=== PATIENT | female | born 1975 | race Caucasian/White ===

== ENCOUNTER → 2023-09-05 14:48 | Outpatient (BNVA) | payer SELFPAY | PROVIDERS: PCP Nurse Practitioner Adult Health ==

== ENCOUNTER 2024-05-28 16:38 | Emergency (ER) | payer OTHER, SELFPAY ==
[2024-05-28] VITALS (7 sets, daily range): BP systolic 157–216; BP diastolic 75–124; PULSE 74–105; RESP 12–18; TEMP 36.8–37.2; O2SAT 96–100; BMI 28.9
--- NOTE | ~2024-05-28 | CT_ITS ---
CLINICAL HISTORY: chest pain elevated bp CT angiography of the chest, abdomen and pelvis with IV contrast. 3D/MIP post processing reconstructions were performed. COMPARISON: None FINDINGS: No evidence of aortic dissection. No thoracic or abdominal aortic aneurysm. Three arch branch vessels. Visualized great vessels of the neck are patent. Celiac trunk, SMA, renal arteries ROSITA are widely patent. Common iliac, external iliac and internal iliac arteries are widely patent bilaterally. Normal thyroid gland. No supraclavicular or axillary lymphadenopathy. Soft tissue density nodular opacity within the right breast measuring 1.6 cm. Ascending aorta and main pulmonary artery are normal in caliber. No pericardial effusion. Normal esophagus. No mediastinal lymphadenopathy. No pleural effusion. No consolidation. Trachea and central airways are clear. No significant bronchial wall thickening. No bronchiectasis. Hepatic steatosis. No focal hepatic lesion. Normal gallbladder. Normal spleen. Normal pancreas. Normal adrenal glands. Symmetric renal enhancement. No hydronephrosis. Normal appendix. Mild colonic stool burden. No bowel obstruction. Circumferential thickening of the rectal mucosa. No mesenteric or retroperitoneal lymphadenopathy. Normal appearance of the urinary bladder. Left adnexal cystic lesion measuring up to 3.3 cm. No acute fracture or suspicious bone lesion. 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 No spondylolisthesis. IMPRESSION: 1. No evidence of aortic dissection or aneurysm. 2. Dominant left ovarian cyst/follicle measuring up to 3.3 cm. 3. Circumferential thickening of the mucosa of the rectum can be associated with proctitis. 4. Nodular density within the right breast measuring up to 1.6 cm. Recommend correlation with recent mammography if not already performed. 5. Hepatic steatosis. This document has been electronically signed by: Alejo Mendoza MD on 05/28/2024 20:23:37
--- NOTE | ~2024-05-28 | XR_ITS ---
CLINICAL HISTORY: pain Two views of the chest. COMPARISON: None FINDINGS: Normal heart and mediastinal contours. No consolidation. Blunting of the bilateral costophrenic angles. No pneumothorax. No fracture identified. IMPRESSION: 1. No consolidation. 2. Question small bilateral pleural effusions. This document has been electronically signed by: Alejo Mendoza MD on 05/28/2024 17:34:48
--- NOTE | 2024-05-28 16:41 | ECG_ITS ---
Test Reason : CHEST PAIN Blood Pressure : */* mmHG Vent. Rate : 104 BPM Atrial Rate : 104 BPM P-R Int : 142 ms QRS Dur : 96 ms QT Int : 340 ms P-R-T Axes : 71 24 51 degrees QTcB Int : 447 ms Sinus tachycardia Possible Left atrial enlargement Borderline ECG When compared with ECG of 16-Feb-2017 02:24, Vent. rate has increased by 37 bpm Referred By: Generic ED Physician Electronically Signed By: EDUARDO CACERES
--- NOTE | 2024-05-28 16:44 | ED_ITS ---
HPI - General Adult General Chief complaint: Chest Pain Stated complaint: Chest pain/HBP Time Seen by Provider: 05/28/24 18:10 Related Data Previous Rx's ?Medication ?Instructions ?Recorded amlodipine 5 mg tablet 5 mg PO DAILY #14 tabs 05/28/24 Allergies Allergy/AdvReac Type Severity Reaction Status Date / Time tuberculin, purified protein AdvReac Intermediate SWELLING Verified 05/28/24 16:47 deriva OF [TB TEST] INJECTED [facility] Social History Social History Smoked in Last 30 Days: Yes Use of substances other than those prescribed or required for medical reasons: No Advance Directives: No Advance Directives Information Provided: No Patient : No Physical Exam ED Vital Signs: Vital Signs - 24 hr 05/28/24 16:45 05/28/24 18:35 05/28/24 19:30 Temperature 98.8 F 98.2 F Pulse Rate 105 H 94 94 Respiratory Rate 18 12 Blood Pressure 216/124 H 210/107 H 210/107 H Pulse Oximetry 100 99 Oxygen Delivery Method Room Air Room Air 05/28/24 20:11 05/28/24 20:23 Temperature 98.9 F Pulse Rate 78 74 Respiratory Rate 12 18 Blood Pressure 181/101 H 157/75 H Pulse Oximetry 96 96 Oxygen Delivery Method Room Air Room Air BMI result Body Mass Index 28.9 Course Course Course Narrative: RME, this is a rapid medical exam performed by Kirt Armas please refer to primary provider for complete H&P- 48 year old female presents for evaluation of chest pain. She was hypertensive to 216 /124. Plan for labs, EKG, chest x-ray. Medications Administered Discontinued Medications Generic Name Dose Route Start Last Admin Trade Name Freq PRN Reason Stop Dose Admin Magnesium Sulfate 2 gm in 50 mls @ 150 mls/hr 05/28/24 18:10 05/28/24 19:31 Magnesium Sulfate/H2o IV 05/28/24 18:29 Infused ONCE ONE Infusion Iohexol 100 ml 05/28/24 19:26 05/28/24 19:26 Iohexol 350 Mg/Ml 100 Ml Infus..Btl IV 05/28/24 19:27 85 ml ONCE ONE Administration Labetalol HCl 10 mg 05/28/24 19:13 05/28/24 19:30 Labetalol Hcl 100 Mg/20 Ml Vial IVPUSH 05/28/24 19:14 10 mg ONCE ONE Administration Medical Decision Making Lab Data 05/28/24 16:54 05/28/24 16:54 Labs: Lab Results 05/28/24 05/28/24 Range/Units 16:54 20:02 WBC 18.0 H (4.8-10.8) X10*3/uL RBC 4.47 (4.20-5.50) X10*6/uL Hgb 14.8 (12.0-16.0) g/dl Hct 41.5 (37.0-47.0) % MCV 92.8 (80.0-98.0) fL MCH 33.1 H (27.0-33.0) pg MCHC 35.7 H (31.0-35.0) g/dl RDW 13.5 (11.0-16.0) % Plt Count 364 (160-400) X10*3/uL MPV 9.1 L (9.4-12.3) fL Immature Gran % (Auto) 0.6 H (0.0-0.4) % Neut % (Auto) 85.5 H (45-73) % Lymph % (Auto) 9.4 L (20-40) % Coleman % (Auto) 3.9 (2-11) % Eos % (Auto) 0.1 (0-4) % Baso % (Auto) 0.5 (0-2) % Lymph # (Auto) 1.7 (1.2-4.9) X10*3/uL Coleman # (Auto) 0.7 (0.1-1.2) X10*3/uL Eos # (Auto) 0.0 (0.0-0.4) X10*3/uL Baso # (Auto) 0.1 (0.0-0.2) X10*3/uL Abs Immat Gran (auto) 0.10 H (0.00-0.03) X10*3/uL Absolute Neuts (auto) 15.4 H (2.0-8.3) x10*3/uL Absolute Nucleated RBC 0.000 (0.0-0.012) X10*3/uL Nucleated RBC % (auto) 0.0 (0.0-0.2) /100WBC Sodium 143 (135-145) mmol/L Potassium 3.2 L (3.3-5.1) mmol/L Chloride 106 (96-108) mmol/L Carbon Dioxide 24 (22-29) mmol/L Anion Gap 16 (12-20) BUN 8 L (9-16) mg/dL Creatinine 0.77 (0.5-1.4) mg/dL Estim Creat Clear Calc 90.3 Estimated GFR > 60 Random Glucose 101 (60-115) mg/dL Calcium 9.9 (8.4-10.2) mg/dL Magnesium 1.4 L* 2.0 (1.6-2.6) mg/dL Total Bilirubin 0.6 (0.0-1.0) mg/dL AST 59 H (5-31) U/L ALT 55 H (0-31) U/L Alkaline Phosphatase 63 (39-117) U/L Troponin I High Sens < 2.7 < 2.7 (<3.5-17.0) ng/L Total Protein 8.0 (6.5-8.0) g/dL Albumin 4.3 (3.5-5.0) g/dL Lipase 22 (8-78) U/L Ethyl Alcohol < 10 mg/dL Influenza Type A (PCR) NEGATIVE (Negative) Influenza Type B (PCR) NEGATIVE (Negative) RSV RNA Qual (PCR) NEGATIVE (Negative) SARS-CoV-2 RNA (RT-PCR) NEGATIVE (Negative) Discharge Plan Discharge Clinical Impression: Chest pain, Hypertensive urgency Patient Disposition: Home, Self-Care Instructions: Chest Pain (DC), Hypertensive Crisis (ED) Additional Instructions: An ovarian cyst was also found on your CT scan. In addition a nodular density was found in your breasts. Both of this needs to be followed up. 1. No evidence of aortic dissection or aneurysm. 2. Dominant left ovarian cyst/follicle measuring up to 3.3 cm. 3. Circumferential thickening of the mucosa of the rectum can be associated with proctitis. 4. Nodular density within the right breast measuring up to 1.6 cm. Recommend correlation with recent mammography if not already performed. 5. Hepatic steatosis. Prescriptions: New amlodipine 5 mg tablet 5 mg PO DAILY Qty: 14 0RF Referrals: Luiz Brock MD [Physician] - 05/31/24 Physician,Unknown J [Primary Care Provider] - (Blood pressure recheck with your primary physician tomorrow) Print Language: Kiswahili
[2024-05-28 16:59] LABS: MANUAL DIFF FLAG NO
[2024-05-28 17:00] LABS: Basophils Absolute Auto 0.1 X10*3/uL (0.0-0.2); Basophils Percent Auto 0.5 % (0-2); Eosinophils Percent Auto 0.1 % (0-4); Hematocrit 41.5 % (37.0-47.0); Hemoglobin 14.8 g/dl (12.0-16.0); Imm Gran Pct Auto 0.6 % (0.0-0.4); Lymphocytes Absolute Auto 1.7 X10*3/uL (1.2-4.9); Lymphocytes Percent Auto 9.4 % (20-40); Mean Corpuscular HGB Conc 35.7 g/dl (31.0-35.0); Mean Corpuscular Hemoglobin 33.1 pg (27.0-33.0); Mean Corpuscular Volume 92.8 fL (80.0-98.0); Mean Platelet Volume 9.1 fL (9.4-12.3); Monocytes Absolute Auto 0.7 X10*3/uL (0.1-1.2); Monocytes Percent Auto 3.9 % (2-11); Neutrophils Absolute Auto 15.4 x10*3/uL (2.0-8.3); Neutrophils Percent Auto 85.5 % (45-73); Platelet Count 364 X10*3/uL (160-400); Red Blood Count 4.47 X10*6/uL (4.20-5.50); Red Cell Distribution Width 13.5 % (11.0-16.0)
[2024-05-28 17:22] LABS: Alanine Aminotransferase 55 U/L (0-31); Albumin Level 4.3 g/dL (3.5-5.0); Alkaline Phosphatase 63 U/L (39-117); Anion Gap 16 (12-20); Aspartate Amino Transferase 59 U/L (5-31); Bilirubin Total 0.6 mg/dL (0.0-1.0); Blood Urea Nitrogen 8 mg/dL (9-16); Calcium 9.9 mg/dL (8.4-10.2); Carbon Dioxide 24 mmol/L (22-29); Chloride 106 mmol/L (96-108); Creatinine Clr Calc Pharmacy 90.3; Estimated Glomerular Filt Rate > 60; Glucose Random 101 mg/dL (60-115); Lipase 22 U/L (8-78); Magnesium 1.4 mg/dL (1.6-2.6); Potassium 3.2 mmol/L (3.3-5.1); Sodium 143 mmol/L (135-145)
[2024-05-28 17:39] LABS: Troponin-I High Sensitivity < 2.7 ng/L (<3.5-17.0)
[2024-05-28 17:41] LABS: Influenza A PCR NEGATIVE (Negative); Influenza B PCR NEGATIVE (Negative); Resp Syncy Virus RNA Qual PCR NEGATIVE (Negative); SARS COV2 PCR INHOUSE NEGATIVE (Negative)
[2024-05-28] MEDS: Magnesium Sulfate/H2O 2 GM/50 ML PIGGYBACK IV (18:36)
[2024-05-28] MEDS: iohexoL 350 MG/ML 100 ML INFUS..BTL IV (19:26)
--- OUTSIDE RECORDS SUMMARY | 2024-05-28 19:29 | XMS_ITS | Patient Health Record ---
Author Organization [employer] [facility] Address [address] [place] [address] Care Team Providers Care Fork Lift Technician Name Role Phone Morales BETANCOURT, Myrna Primary Care Provider Moody vogt QUITA GEORGES Unavailable [phone] Reason For Referral No Information Medications Medication SIG (Take, Route, Frequency, Duration) Notes Start Date End Date Status ProAir HFA 90MCG 2 Inhalation four ti mes daily for -3 Narciso-MJ 10/03/2011 Active Nexplanon 68 MG as directed Subcutaneous Inserted 01/07/20 01/09/2017 Active Social History Tobacco Use: Social History Observation Description Date Details (start date - stop date) Current Smoker NA - NA Tobacco Use/Smoking Question Answer Notes Are you a current smoker How often do you smoke cigarettes? every day How many cigarettes a day do you smoke? 5 or les s Alcohol Screen (Audit-C) Question Answer Notes Did you have a drink contain ing alcohol in the past year? Yes How often did you have a dri nk containing alcohol in the past year? 2 to 4 times a month (2 points) How many drinks did you have on a typical day when you were drinking in the past year? 1 or 2 drinks (0 point) Points 2 Interpretation Negative Sexual History Question Answer Notes Had sex in the past 12 months (vaginal, oral, or anal)? Yes with Men only Prevention strategies discussed: Other Section Notes: Marital status: Children: none Lives with: significant other Pets: NONE Occupation: employed full-time Nutrition: poor diet Exercise: regular cardio Sexual activity: monogamous relationship. Heterosexual Satisfied with sexual function Contraception: oral contraceptives, condoms Marital status: Children: none Lives with: significant other Pets: NONE Occupation: employed full-time Nutrition: poor diet Exercise: regular cardio Sexual activity: monogamous relationship. Heterosexual Satisfied with sexual function Contraception: oral contraceptives, condoms Marital status: Children: none Lives with: significant other Pets: NONE Occupation: employed full-time Nutrition: poor diet Exercise: regular cardio Sexual activity: monogamous relationship. Heterosexual Satisfied with sexual function Contraception: oral contraceptives, condoms Marital status: Children: none Lives with: significant other Pets: NONE Occupation: employed full-time Nutrition: poor diet Exercise: regular cardio Sexual activity: monogamous relationship. Heterosexual Satisfied with sexual function Contraception: oral contraceptives, condoms Problems Problem Type SNOMED Code ICD Code Onset Dates Problem Status W/U Status Risk Notes Problem Asthma (disorder) (380279032) Asthma, unspecified, unspecified status (493.90) Active confirmed Major Problem Backache (945005846) Unspecified backache (724.5) Active confirmed Major Encounters Encounter Location Date Provider [address] [address] 05/14/2024 QUITA GEORGES Encounter for gynecological examination [...] transmission (ICD-10 - Z11.3) Plan Of Treatment Pending Test Test Name Order Date THIN PREP,HPV,CACHORRO IF HPV+ (>29YR)(SCRN) 12/07/2016 MM Digital Mammo Screening 02/27/2018 MM Digital Mammo Screening 12/07/2016 Next Appt Details Provider Name:QUITA BRAVO Patti, 11/28/2024 02:00:00 PM, [address], [address], [place], [address], Insurance Providers Payer Name Payer Address Payer Phone Subscriber Number Group Number Insured Name Patient Relationship to Insured Coverage Start Date Coverage End Date [employer] [place] [address] [place] [address] [id number] ROBERT PETERSON Self - patient is the insured Medical (General) History Medical History History ICD Code Unspecified asthma, uncomplicated J45.90 9 Surgical History Surgery Date(Month/Year) Colposcopy D+C [place] Teeth Extraction
[2024-05-28] MEDS: Labetalol HCL 100 MG/20 ML VIAL 10 MG IVPUSH (19:30)
--- OUTSIDE RECORDS SUMMARY | 2024-05-28 19:30 | XMS_ITS ---
Author Organization [facility] Address [address] [place] [address] Care Team Providers Care Art Education Professor Name Role Phone Morales BETANCOURT, Myrna Primary Care Provider UnaQUITA Escamilla Unavailable [phone] REASON FOR VISIT Annual SIGN LANGUAGE INSTRUCTOR Physical Encounters Encounter Location Date Provider Diagnosis [facility] [address] [address] 05/14/2024 QUITA GEORGES Encounter for gynecological examination [...] Follow Up: 1 Year, Reason: Y early Cripple Worker Exam Provider Name:QUITA Armstrong, 11/28/2024 02:00:00 PM, [address], [address], [place], [address], Progress Notes * JULISA SPIVEYOB: [birth year] (48 yo F)Acc No.[id number]:05/14/2024 PROGRESS NOTES Patient:?SUZY SPIVEY Provider:?QUITA GEORGES MD :1975???Age:48 Y???Sex:Female D ate:05/14/2024 Address:[address] [place] [address], [address] [place] [address] , [facility] Pcp:Myrna Nielsen NP Subjective: * Chief Complaints: * ???1. Annual SIGN LANGUAGE INSTRUCTOR Physical. * HPI: ???Constitutional:? Suzy is a 48yo with LMP x/x/x who presents for her yearly foundation assistant exam. She is new again to this practice, having last received foundation assistant care here in 2019. She has been [...] She exercises x days/week by . * ROS:?Annual Cripple Worker Exam ROS:?Bowel habit changes?denies.?Bladder symptoms?denies.?Vaginal discharge, unusual?denies.?Vaginal itch or odor?denies.?weight or appetite changes?denies.?Chest pains, SOB?denies.?depression?denies.?Breast:?Denies?Breast lump.?Denies?Nipple discharge.?Hematology:?Denies?Swollen glands.?Skin:?Patient denies?changing moles.?Psychiatric:?Denies?Anxiety.? * Medical History:? Objective: * Vitals:? * Examination: ???General Examination: ?GENERAL APPEARANCE:?in no acute distress, well developed, well nourished, report checker present in room.?HEAD:?normocephalic, atraumatic.?NECK/THYROID:?neck supple, full range of motion, thyroid normal.?LYMPH NODES:?no axillary or supraclavicular adenopathy.?SKIN:? normal, good turgor, no rashes, no suspicious lesions.?BREASTS:? normal, no dimpling, no discharge, no drainage, no masses palpable bilaterally, nontender.?ABDOMEN:? soft, non-tender, non distended without masses or hepatosplenomegay.?RECTAL:? normal tone, no masses palpable.?BACK:? no costovertebral angle tenderness.?FEMALE GENITOURINARY:?Vulva without lesions or masses, vagina pink without abnormal discharge, lesions or masses, cervix appears normal and is not tender to palpation, uterus is normal size, mobile, nontender and anteverted, ovaries are not palpable.?NEUROLOGIC:? alert and oriented, gait normal.?PSYCH:? alert, oriented, cognitive function intact, cooperative with exam, good eye contact, mood/affect full range, speech clear.? Assessment: * Assessment: 1.?Encounter for gynecologic al examination (general) (routine) without abnormal findings - Z01.419 (Primary)???2.?Encounter for screening mammogram for malignant neoplasm of breast - Z12.31???3.?Encounter for screening for infections with a predominantly sexual mode of transmission - Z11.3??? Plan: * Treatment: 2.?Encounter for screening m ammogram for malignant neoplasm of breast? Notes: Ordered by PCP?? * Follow Up:?1 Year (Reason: Y early Cripple Worker Exam) * Images: Billing Information: * Visit Code:? 72741 Preventive Care New Pt. Age 40-64. * Procedure Codes:? * Electronic signature of QUITA GEORGES MD on 05/28/2024 at 07:29 PM EDT Sign off status: Pending * Provider:?QUITA GEORGES MD Date:?2024 Generated for Yamila ahumada/Lizzie/Kelseyitting on:?05/28/2024 07:29 PM EDT History and Physical Notes * HPI (History of Present Illness) Category Sub-Category Detail Notes Category Not es Constitutional Suzy is a 48yo with LMP x/x/x who presents for her yearly foundation assistant exam. She is new again to this practice, having last received foundation assistant care here in 2019. She has been [...] an abnormal pap requiring colposcopy in her 's. Her most recent pap smear was 12/07/16 [...] General Examination GENERAL APPEARANCE: in no ac paiute-shoshone distress, well developed, well nourished, report checker present in room HEAD: normocephalic, atrau matic [...]
[2024-05-28 20:32] LABS: Ethanol < 10 mg/dL
[2024-05-28 20:34] LABS: Troponin-I High Sensitivity < 2.7 ng/L (<3.5-17.0)
--- NOTE | 2024-05-28 20:39 | ED.CHESTPAIN ---
HPI - Chest Pain General Chief Complaint: Chest Pain Stated Complaint: Chest pain/HBP Time Seen by Provider: 05/28/24 18:10 History of Present Illness HPI narrative: Patient is a 48-year-old female presents today with having chest pain that is ongoing for the last 3 hours was noted to have elevated blood pressure the pain is on the left side it goes to the shoulder. Patient has a extremely elevated blood pressure as noted by triage. Sent in for further evaluation admits to drinking alcohol but have not drank recently. Also has a history of tobacco use. No history of diabetes. No history hypertension. No history of RI. No family history of RI or sudden . Patient is denies any coughing congestion upper respiratory symptoms. Denies any leg pain. Denies any history of blood clots. Patient has a Norplant. Does not think she is . No risk stratification done in the past. Admits to smoking. Related Data Previous Rx's ?Medication ?Instructions ?Recorded amlodipine 5 mg tablet 5 mg PO DAILY #14 tabs 05/28/24 Allergies Allergy/AdvReac Type Severity Reaction Status Date / Time tuberculin, purified protein AdvReac Intermediate SWELLING Verified 05/28/24 16:47 deriva OF [TB TEST] INJECTED ARM Review of Systems Review of Systems: No fever no chills no diaphoresis Yes all other systems are reviewed and are negative PMFSH Past Medical History Attestation statement: The following information was validated with the patient. Social History Social History Smoked in Last 30 Days: Yes Use of substances other than those prescribed or required for medical reasons: No Advance Directives: No Advance Directives Information Provided: No Patient : No Physical Exam Vital Signs: Vital Signs: Last Vital Signs Temp 98.9 F 05/28/24 20:11 Pulse 74 05/28/24 20:23 Resp 18 05/28/24 20:23 BP 157/75 H 05/28/24 20:23 Pulse Ox 96 05/28/24 20:23 O2 Del Method Room Air 05/28/24 20:23 BMI result Body Mass Index 28.9 Appearance: Alert. Oriented X3. No acute distress. Eyes: Pupils equal, round and reactive to light. ENT: Pharynx normal. Neck: Normal inspection. Neck supple. No lymph nodes noted. No crepitus CVS: Normal heart rate and rhythm. Pulses normal. Normal S1 and S2 Respiratory: No respiratory distress. Breath sounds normal. No Wheezing. No rales Abdomen: Soft and nontender. No rigidity. No distention. good BS x4 Skin: Skin warm and dry. Normal skin color. Normal skin turgor. Extremities: No lower extremity edema. Neurovascular intact to all extremities. No Lacerations. No Rash Neuro: Oriented X 3. No motor deficit. No sensory deficit. Moving all extermities. No slurred speech Medications Administered Discontinued Medications Generic Name Dose Route Start Last Admin Trade Name Freq PRN Reason Stop Dose Admin Magnesium Sulfate 2 gm in 50 mls @ 150 mls/hr 05/28/24 18:10 05/28/24 19:31 Magnesium Sulfate/H2o IV 05/28/24 18:29 Infused ONCE ONE Infusion Iohexol 100 ml 05/28/24 19:26 05/28/24 19:26 Iohexol 350 Mg/Ml 100 Ml Infus..Btl IV 05/28/24 19:27 85 ml ONCE ONE Administration Labetalol HCl 10 mg 05/28/24 19:13 05/28/24 19:30 Labetalol Hcl 100 Mg/20 Ml Vial IVPUSH 05/28/24 19:14 10 mg ONCE ONE Administration Medical Decision Making Medical Decision Making [facility] Narrative: My interpretation of patient's EKG showed a sinus pattern heart rate is 100 UT QRS QTC normal no acute ST segment elevation. First set of troponin was negative. Patient's initial blood pressure was 216/124. Patient is has chest pain that is over the left chest goes to the shoulder. It is sharp. With a long history of smoking. A CTA of the chest abdomen pelvis was done. It showed no evidence of dissection. A breast nodule was noted. This finding was discussed with her. A ovarian cyst was also noted. Patient's 2nd set of troponin was also negative. AST ALT minimally elevated consistent with history of drinking. Patient is alcohol level was nondetectable. Currently pain-free. Because of her extreme elevated blood pressure. She was given a dose of labetalol 10 mg. On repeat blood pressure check it was down to 157/75. Joint decision was made with patient she is 48 years old she does have multitude of risk factors including smoking and hypertension. Nevertheless she has negative troponin she has an atypical history she has a history not consistent with PE he has no evidence of dissection on CTA on CTA patient also has no evidence for pneumothorax no evidence for rib fracture. Will discharge patient home have patient follow-up on an outpatient basis. Differential Diagnosis Differential Diagnoses: The differential diagnosis associated with the presentation includes Hypertensive urgency, hypertensive emergency, ACS, dissection Admission/Observation Consideration of admission/observation: Escalation of care including admission/observation considered Lab Data MDM Lab Attestation statement: I reviewed the patient's lab results. 05/28/24 16:54 05/28/24 16:54 Labs: Lab Results 05/28/24 05/28/24 Range/Units 16:54 20:02 WBC 18.0 H (4.8-10.8) X10*3/uL RBC 4.47 (4.20-5.50) X10*6/uL Hgb 14.8 (12.0-16.0) g/dl Hct 41.5 (37.0-47.0) % MCV 92.8 (80.0-98.0) fL MCH 33.1 H (27.0-33.0) pg MCHC 35.7 H (31.0-35.0) g/dl RDW 13.5 (11.0-16.0) % Plt Count 364 (160-400) X10*3/uL MPV 9.1 L (9.4-12.3) fL Immature Gran % (Auto) 0.6 H (0.0-0.4) % Neut % (Auto) 85.5 H (45-73) % Lymph % (Auto) 9.4 L (20-40) % Nobles % (Auto) 3.9 (2-11) % Eos % (Auto) 0.1 (0-4) % Baso % (Auto) 0.5 (0-2) % Lymph # (Auto) 1.7 (1.2-4.9) X10*3/uL Nobles # (Auto) 0.7 (0.1-1.2) X10*3/uL Eos # (Auto) 0.0 (0.0-0.4) X10*3/uL Baso # (Auto) 0.1 (0.0-0.2) X10*3/uL Abs Immat Gran (auto) 0.10 H (0.00-0.03) X10*3/uL Absolute Neuts (auto) 15.4 H (2.0-8.3) x10*3/uL Absolute Nucleated RBC 0.000 (0.0-0.012) X10*3/uL Nucleated RBC % (auto) 0.0 (0.0-0.2) /100WBC Sodium 143 (135-145) mmol/L Potassium 3.2 L (3.3-5.1) mmol/L Chloride 106 (96-108) mmol/L Carbon Dioxide 24 (22-29) mmol/L Anion Gap 16 (12-20) BUN 8 L (9-16) mg/dL Creatinine 0.77 (0.5-1.4) mg/dL Estim Creat Clear Calc 90.3 Estimated GFR > 60 Random Glucose 101 (60-115) mg/dL Calcium 9.9 (8.4-10.2) mg/dL Magnesium 1.4 L* 2.0 (1.6-2.6) mg/dL Total Bilirubin 0.6 (0.0-1.0) mg/dL AST 59 H (5-31) U/L ALT 55 H (0-31) U/L Alkaline Phosphatase 63 (39-117) U/L Troponin I High Sens < 2.7 < 2.7 (<3.5-17.0) ng/L Total Protein 8.0 (6.5-8.0) g/dL Albumin 4.3 (3.5-5.0) g/dL Lipase 22 (8-78) U/L Ethyl Alcohol < 10 mg/dL Influenza Type A (PCR) NEGATIVE (Negative) Influenza Type B (PCR) NEGATIVE (Negative) RSV RNA Qual (PCR) NEGATIVE (Negative) SARS-CoV-2 RNA (RT-PCR) NEGATIVE (Negative) Independent Interpretation I performed an independent interpretation of an: EKG (My interpretation patient's EKG as above) and CT Scan (My interpretation patient's CTA chest abdomen pelvis grossly negative) Radiology Impression Discussion of test interpretation with radiology: I have reviewed the radiologist's reading. Independent Historian Clinical information obtained from an independent historian. History obtained from or confirmed by: Spouse Chronic Conditions Patient?s care impacted by: Hypertension History of smoking Social Determinants Patient?s care significantly limited by Social Determinants of Health including: Alcoholism and drug addiction in family Discharge Plan Discharge Clinical Impression: Chest pain, Hypertensive urgency Patient Disposition: Home, Self-Care Instructions: Chest Pain (DC), Hypertensive Crisis (ED) Additional Instructions: An ovarian cyst was also found on your CT scan. In addition a nodular density was found in your breasts. Both of this needs to be followed up. 1. No evidence of aortic dissection or aneurysm. 2. Dominant left ovarian cyst/follicle measuring up to 3.3 cm. 3. Circumferential thickening of the mucosa of the rectum can be associated with proctitis. 4. Nodular density within the right breast measuring up to 1.6 cm. Recommend correlation with recent mammography if not already performed. 5. Hepatic steatosis. Prescriptions: New amlodipine 5 mg tablet 5 mg PO DAILY Qty: 14 0RF Referrals: Luiz Brock MD [Physician] - 05/31/24 Physician,Unknown J [Primary Care Provider] - (Blood pressure recheck with your primary physician tomorrow) Print Language: Citizen [place]
[2024-05-28] MEDS: amLODIPine Besylate 5 MG TABLET PO (21:14)
== END 2024-05-28 21:19 | disposition home or self-care (01) ==
PROVIDERS: Physician Assistant; Emergency Provider Emergency Medicine Emergency Medical Services
DX: R07.9 Chest pain, unspecified (principal); I16.0 Hypertensive urgency; R00.0 Tachycardia, unspecified; I10 Essential (primary) hypertension; F17.210 Nicotine dependence, cigarettes, uncomplicated; Z03.818 Encounter for observation for suspected exposure to other biological agents ruled out
CPT/HCPCS: 0241U; 36415; 71046; 71275; 74174; 80053; 80307; 83690; 83735; 84484; 85025; 93005; 96365; 96375; 99284; 99285; J1920; J3475; Q9967

== ENCOUNTER → 2024-05-28 16:41 | Outpatient (BNV) | payer OTHER, SELFPAY | PROVIDERS: Emergency Provider Emergency Medicine Emergency Medical Services; Visit Provider Internal Medicine | DX: R00.0 Tachycardia, unspecified (principal) | CPT/HCPCS: 93010 ==

== ENCOUNTER → 2024-05-28 16:45 | Outpatient (BNV) | payer OTHER, SELFPAY | PROVIDERS: Visit Provider Radiology Diagnostic Radiology | DX: N83.202 Unspecified ovarian cyst, left side (principal); K76.0 Fatty (change of) liver, not elsewhere classified; R92.30 Dense breasts, unspecified; R07.9 Chest pain, unspecified | CPT/HCPCS: 71046; 71275; 74174 ==

== ENCOUNTER 2025-01-06 12:47 | Outpatient (REF) | payer OTHER, SELFPAY ==
[2025-01-06 12:56] LABS: MANUAL DIFF FLAG NO
[2025-01-06 14:03] LABS: Hematocrit 42.5 % (37.0-47.0); Hemoglobin 14.5 g/dl (12.0-16.0); Imm Gran Abs Auto 0.02 X10*3/uL (0.00-0.03); Imm Gran Pct Auto 0.2 % (0.0-0.4); Lymphocytes Absolute Auto 2.0 X10*3/uL (1.2-4.9); Mean Corpuscular HGB Conc 34.1 g/dl (31.0-35.0); Mean Corpuscular Hemoglobin 32.8 pg (27.0-33.0); Mean Corpuscular Volume 96.2 fL (80.0-98.0); NRBC Abs Auto 0.000 X10*3/uL (0.0-0.012); NRBC Pct Auto 0.0 /100WBC (0.0-0.2); Platelet Count 279 X10*3/uL (160-400); Red Blood Count 4.42 X10*6/uL (4.20-5.50); White Blood Count 8.7 X10*3/uL (4.8-10.8)
[2025-01-06 14:49] LABS: Alanine Aminotransferase 126 U/L (0-31); Albumin Level 4.7 g/dL (3.5-5.0); Alkaline Phosphatase 91 U/L (39-117); Anion Gap 17 (12-20); Aspartate Amino Transferase 141 U/L (5-31); Blood Urea Nitrogen 6 mg/dL (9-16); Calcium 9.9 mg/dL (8.4-10.2); Carbon Dioxide 23 mmol/L (22-29); Chloride 103 mmol/L (96-108); Estimated Glomerular Filt Rate > 60; Potassium 4.5 mmol/L (3.3-5.1); Sodium 138 mmol/L (135-145); Total Protein 7.8 g/dL (6.5-8.0)
== END 2025-01-06 12:48 | disposition home or self-care (01) ==
LOC: HO.LAB 12:47
PROVIDERS: PCP Nurse Practitioner Family; Visit Provider Nurse Practitioner Family
DX: Z00.00 Encounter for general adult medical examination without abnormal findings (principal)
CPT/HCPCS: 36415; 80053; 85025

== ENCOUNTER 2025-01-28 15:06 | Outpatient (REF) | payer OTHER, SELFPAY ==
--- OUTSIDE RECORDS SUMMARY | 2024-05-14 05:30 | XMS_ITS ---
Author Organization [employer] Address [address] [facility] [address] [place] [address] Care Team Providers Care Wood Heel Attacher Name Role Phone BOB BETANCOURT, KEYSHAWN Primary Care Provider Unavail QUITA Gardiner Unavailable [phone] REASON FOR VISIT Annual SPECIAL FORCES OFFICER Physical Encounters Encounter Location Date Provider Diagnosis [facility] [address] [address] 05/14/2024 QUITA GEORGES Encounter for gynecological examination (general) (routine) without abnormal findings Z01.419 ; Encounter for screening mammogram for malignant neoplasm of breast Z12.31 and Encounter for screening for infections with a predominantly sexual mode of transmission Z11.3 Assessments Encounter Date Diagnosis (ICD Code) Assessment Notes Treatment Notes Treatment Clinical Notes Section Notes 05/14/2024 Encounter for gynecological examination (general) (routine) without abnormal findings (ICD-10 - Z01.419) During the visit, the following areas of concern were addressed: Discussed cervical cancer screening with either cytology alone every 3 years or high risk HPV co-testing every 5 years as per ASCCP guidelines. Advised continued annual pelvic exams. Patient encouraged to increase her level of exercise. SBE technique encouraged/tau ght. Patient reminded when annual mammogram is due. Patient encouraged to keep colon screening up to date. 05/14/2024 Encounter for screening mammogram for malignant neoplasm of breast (ICD-10 - Z12.31) Ordered by PCP 05/14/2024 Encounter for screening for infections with a predominantly sexual mode of transmission (ICD-10 - Z11.3) Plan Of Treatment Treatment Notes Assessment Notes Encounter for gynecological examination (general) (routine) without abnormal findings During the visit, the following areas of concern were addressed: Discussed cervical cancer screening with either cytology alone every 3 years or high risk HPV co-testing every 5 years as per ASCCP guidelines. Advised continued annual pelvic exams. Patient encouraged to increase her level of exercise. SBE technique encouraged/taught. Patient reminded when annual mammogram is due. Patient encouraged to keep colon screening up to date. Encounter for screening mamm ogram for malignant neoplasm of breast Ordered by PCP Next Appt Details Follow Up: 1 Year, Reason: Y early Emergency Department Physician Exam Provider Name:QUITA Armstrong, 12/02/2025 01:00:00 PM, [address], [address], [place], [address], Progress Notes * JULISA SPIVEYOB: [birth year] (49 yo F)Acc No.[id number]:05/14/2024 PROGRESS NOTES Patient: SUZY BENSON Provider: Negro GEORGES MD :1975 A ge:48 Y S ex:Female Date:05/14/2024 Address:[address] [place] [address], [address] [place], [place] [id number] Pcp:KEYSHAWN ROJAS NP Subjective: * Chief Complaints: * 1 . Annual SPECIAL FORCES OFFICER Physical. * HPI: C onstitutional: Suzy is a 48yo with LMP x/x/x who presents for her yearly card mounter exam. She is new again to this practice, having last received card mounter care here in 2019. She has been in state of health since her last exam. She has the following concerns:. She has received the Covid-19 vaccine. Relationship status: for years. She is sexually active. Sexual partner(s): male. She does wish to have STI testing. Menses: Contraception: She had Nexplanon replaced 01/07/2020. Was due for replacement i 12/2022. She does report vaginal dryness. She does have hot flashes/night sweats. The patient has not had an abnormal pap smear within the last 5 years, but reports a history of an abnormal pap requiring colposcopy in her 20's. Her most recent pap smear was 12/07/16 - NIL, neg HR HPV. She is overdue for cotesting. She has been diagnosed with breast cancer. She does have a family history of breast cancer - maternal aunt. Her last mammogram was 02/27/23, as ordered by her PCP. She has since then had 2 breast biopsies, with imaging, and a followup right breast ultrasound 10/03/23. She does have a family history of colon cancer - MGF. She a has had a colonoscopy. The last colonoscopy was . The patient does exercise. She exercises x days/week by . * ROS: A nnual Emergency Department Physician Exam ROS: Bowel habit changes d enies. B ladder symptoms d enies. V aginal discharge, unusual d enies. V aginal itch or odor d enies. w eight or appetite changes d enies. C hest pains, SOB d enies. d epression d enies.? B reast: Denies B reast lump. D enies N ipple discharge.? H ematology: Denies S wollen glands. S kin: Patient denies c hanging moles. P sychiatric: Denies A nxiety. * Medical History: Objective: * Vitals: * Examination: G eneral Examination: GENERAL APPEARANCE: i n no acute distress, well developed, well nourished, mapping analyst present in room. HEAD: n ormocephalic, atraumatic. NECK/THYROID: n dorene supple, full range of motion, thyroid normal. LYMPH NODES: n o axillary or supraclavicular adenopathy.? SKIN: normal, good turgor, no rashes, no suspicious lesions. BREASTS: normal, no dimpling, no discharge, no drainage, no masses palpable bilaterally, nontender. ABDOMEN: soft, non-tender, non distended without masses or hepatosplenomegay. RECTAL: normal tone, no masses palpable. BACK: no costovertebral angle tenderness. FEMALE GENITOURINARY: V ulva without lesions or masses, vagina pink without abnormal discharge, lesions or masses, cervix appears normal and is not tender to palpation, uterus is normal size, mobile, nontender and anteverted, ovaries are not palpable. NEUROLOGIC: alert and oriented, gait normal. PSYCH: alert, oriented, cognitive function intact, cooperative with exam, good eye contact, mood/affect full range, speech clear. Assessment: * Assessment: 1. E ncounter for gynecological examination (general) (routine) without abnormal findings - Z01.419 (Primary) 2 . E ncounter for screening mammogram for malignant neoplasm of breast - Z12.31 3 . E ncounter for screening for infections with a predominantly sexual mode of transmission - Z11.3 Plan: * Treatment: 2. E ncounter for screening mammogram for malignant neoplasm of breast Notes: Ordered by PCP * Follow Up: 1 Year (Reason: Yearly Emergency Department Physician Exam) * Images: Billing Information: * Visit Code: * Procedure Codes: * Electronic signature of QUITA GEORGES MD on 01/28/2025 at 04:54 PM EST Sign off status: Pending * Provider: Negro GEORGES MD Date: 0 05/14/2024 Generated for Yamila ahumada/Lizzie/eTransmitting on: 1 03/30/2024 04:54 PM EST History and Physical Notes * HPI (History of Present Illness) Category Sub-Category Detail Notes Category Not es Constitutional Suzy is a 48yo with LMP x/x/x who presents for her yearly card mounter exam. She is new again to this practice, having last received card mounter care here in 2019. She has been in state of health since her last exam. She has the following concerns:. She has received the Covid-19 vaccine. Relationship status: for years. She is sexually active. Sexual partner(s): male. She does wish to have STI testing. Menses: Contraception: She had Nexplanon replaced 01/07/2020. Was due for replacement i 12/2022. She does report vaginal dryness. She does have hot flashes/night sweats. The patient has not had an abnormal pap smear within the last 5 years, but reports a history of an abnormal pap requiring colposcopy in her 20's. Her most recent pap smear was 12/07/16 - NIL, neg HR HPV. She is overdue for cotesting. She has been diagnosed with breast cancer. She does have a family history of breast cancer - maternal aunt. Her last mammogram was 02/27/23, as ordered by her PCP. She has since then had 2 breast biopsies, with imaging, and a followup right breast ultrasound 10/03/23. She does have a family history of colon cancer - MGF. She a has had a colonoscopy. The last colonoscopy was . The patient does exercise. She exercises x days/week by . Examination Category Sub-Category Detail Notes Category Not es General Examination GENERAL APPEARANCE: in no ac iroquois distress, well developed, well nourished, mapping analyst present in room HEAD: normocephalic, atrau matic NECK/THYROID: neck supple, full ra nge of motion, thyroid normal ABDOMEN: soft, non-tender, no n distended without masses or hepatosplenomegay NEUROLOGIC: alert and oriented, gait normal SKIN: normal, good turgor, no rashes, no suspicious lesions BACK: no costovertebral an gle tenderness BREASTS: normal, no dimpling, no discharge, no drainage, no masses palpable bilaterally, nontender LYMPH NODES: no axillary or supra clavicular adenopathy RECTAL: normal tone, no mass es palpable PSYCH: alert, oriented, cog nitive function intact, cooperative with exam, good eye contact, mood/affect full range, speech clear FEMALE GENITOURINARY: Vulva without lesi ons or masses, vagina pink without abnormal discharge, lesions or masses, cervix appears normal and is not tender to palpation, uterus is normal size, mobile, nontender and anteverted, ovaries are not palpable
--- OUTSIDE RECORDS SUMMARY | 2025-01-28 16:54 | XMS_ITS | Patient Health Record ---
Author Organization [facility] Address [address] [place] [address] Care Team Providers Care Transmitter Supervisor Name Role Phone KEYSHAWN ROJAS NP Primary Care Provider Unavail able QUITA GEORGES Unavailable [phone] Allergies Allergen (clinical drug ingredient) Drug/Non Drug Allergy documented on EMR Reaction Allergy Type Onset Date Status amlodipine amLODIPine leg swelling Drug Allergy Ac tive Results Component Value Reference Range Notes [id number] IGP No Culture 30 Plus Reviewed date:12/03/2024 11:44:06 AM Interpretation: Performing Lab:[facility] [place], [address], [address], [place], Phone - [phone], Director - [employer] Notes/Report: Clinical Information:VAG/CERV [id number] LMP / Prev Treat...[id number]=[id number] Dates / Results....12/07/2016 No. of containers..01 ThinPrep Vial DIAGNOSIS: NEGATIVE FOR IN TRAEPITHELIAL LESION OR MALIGNANCY. Specimen adequacy: Satisfactory for evaluation. Endocervical and/or squamous metaplastic cells (endocervical component) are present. Clinician provided ICD10: Z01.419 Z11.51 Performed by: Javier west, [facility] (ASCP) . . Note: The Pap smear is a screening test designed to aid in the detection of premalignant and malignant conditions of the uterine cervix. It is not a diagnostic procedure and should not be used as the sole means of detecting cervical cancer. Both false-positive and false-negative reports do occur. . Test Methodology: This liquid based ThinPrep(R) pap test was screened with the use of an image guided system. HPV Aptima Negative Negative This nucleic acid amplification test detects fourteen high-risk HPV types (16,18,31,33,35,39,45,51,52,56,58 ,59,66,68) without differentiation. HPV Genotype Reflex Criteria not met, HPV Genotype not performed. PDF Report Reviewed date:12/03/2024 11:43:39 AM Interpretation: Performing Lab:[facility] [place], [address], [address], [place], Phone - [phone], Director - [employer] Notes/Report: Clinical Information:VAG/CERV [id number] LMP / Prev Treat...YVJ=[id number] Dates / Results....12/07/2016 No. of containers..01 ThinPrep Vial Reason For Referral No Information Medications Medication SIG (Take, Route, Fr equency, Duration) Notes Start Date End Date Status ProAir HFA 90MCG 2 Inhalation four ti mes daily; Duration: -3 Narciso-MJ 10/03/2011 Active Magnesium Active Valsartan 40 MG 1 tablet Orally Twice a day Active Social History Tobacco Use: Social History Observation Description Date Details (start date - stop date) Current Smoker NA - NA Sexual History Question Answer Notes Had sex in the past 12 months (vaginal, oral, or anal)? Yes with Men only Prevention strategies discussed: Other AUDIT-C (Standard) Question Answer Notes Did you have a drink contain ing alcohol in the past year? Yes How often did you have a dri nk containing alcohol in the past year? 2 to 3 times a week (3 points) How many drinks did you have on a typical day when you were drinking in the past year? 1 or 2 drinks (0 point) How often did you have six o r more drinks on one occasion in the past year? Never (0 point) Points 3 Interpretation Positive Tobacco Control (Standard) Question Answer Notes Tobacco use: Current smoker How often do you smoke cigarettes? Every day How many cigarettes a day do you smoke? - Section Notes: Marital status: Children: none Lives [...] Problem Status W/U Status Risk Notes Problem Essential hypertension (10094106) Essential (primary) hypertension (I10) Active confirmed Problem Tobacco user (003376535) Nicotine dependence, cigarettes, uncomplicated (F17.210) Active confirmed Problem COVID-19 (469123692) COVID-19 (U07.1) Active confirmed Problem Asthma (disorder) (645257830) Asthma, unspecified, unspecified status (493.90) Active confirmed Major Problem Backache (564725601) Unspecified backache (724.5) Active confirmed Major Vital Signs Temperature 98.4 degrees Fahrenheit 12/24/2024 Blood pressure diastolic 100 mm Hg 12/24/2024 Height 63.5 in 12/24/2024 Blood pressure systolic 180 mm Hg 12/24/2024 Weight 165 lbs 12/24/2024 BMI 28.77 kg/m2 12/24/2024 Encounters Encounter Location Date Provider Diagnosis Total [address] [place] [address] 05/14/2024 QUITA GEORGES Encounter for gynecological examination (general) (routine) without abnormal findings Z01.419 ; Encounter for screening mammogram for malignant neoplasm of breast Z12.31 and Encounter for screening for infections with a predominantly sexual mode of transmission Z11.3 [facility] [address] [place] [address] 11/28/2024 QUITA GEORGES Encounter for gynecological examination (general) (routine) without abnormal findings Z01.419 ; Encounter for screening mammogram for malignant neoplasm of breast Z12.31 ; Encounter for screening for human papillomavirus (HPV) Z11.51 ; Nicotine dependence, cigarettes, uncomplicated F17.210 and Encounter for surveillance of implantable subdermal contraceptive Z30.46 [facility] [address] [place] [address] 12/24/2024 QUITA GEORGES Encounter for surveillance of implantable subdermal contraceptive Z30.46 Assessments Encounter Date Diagnosis (ICD Code) Assessment [...] to keep colon screening up to date. 11/28/2024 Encounter for gynecological examination (general) (routine) without [...] to keep colon screening up to date. Encouraged to contact PCP for elevated blood pressure. 11/28/2024 Encounter for screening mammogram for malignant neoplasm of breast (ICD-10 - Z12.31) 12/24/2024 Encounter for surveillance of implantable subdermal contraceptive (ICD-10 - Z30.46) 11/28/2024 Encounter for screening for human papillomavirus (HPV) (ICD-10 - Z11.51) 05/14/2024 Encounter for screening mammogram for malignant neoplasm of breast (ICD-10 - Z12.31) Ordered by PCP 05/14/2024 Encounter for screening for infections with a predominantly sexual mode of transmission (ICD-10 - Z11.3) 11/28/2024 Nicotine dependence, cigarettes, uncomplicated (ICD-10 - F17.210) Decreasing numbers of cigarettes smoking - encouraged to continue efforts 11/28/2024 Encounter for surveillance of implantable subdermal contraceptive (ICD-10 - Z30.46) Schedule Nexplanon removal Plan Of Treatment Pending Test Test Name Order Date THIN PREP,HPV,CACHORRO IF HPV+ (>29YR)(SCRN) 12/07/2016 MM Digital Mammo Screening 12/07/2016 MM Digital Mammo Screening 02/27/2018 MM Digital Screening Mammogram 3D 2024 Next Appt Details Provider Name:QUITA Armstrong, 12/02/2025 01:00:00 PM, [address] [facility], [address], [place], [address], Insurance Providers Payer Name Payer Address Payer Phone Subscriber Number Group Number Insured Name Patient Relationship to Insured Coverage Start Date Coverage End Date [employer] [place] [address] [address] [place] [address] [id number] ROBERT GOODMAN Self - patient is the insured Medical (General) History Medical History History ICD Code Unspecified asthma, uncomplicated J45.90 9 COVID-19 U07.1 Essential (primary) hypertension I10 Surgical History Surgery Date(Month/Year) Colposcopy D+C [place] Teeth Extraction Bilateral breast biopsies 04/2023
--- OUTSIDE RECORDS SUMMARY | 2025-01-28 16:54 | XMS_ITS | Clinical Summary ---
Author Organization [facility] Address [address] [address] Phone Care Team Providers Care Speech And Language Specialist Name Role Phone Unknown, Unknown Primary Care Provider Ezequiel chandra Social History Tobacco Use Types Packs/Day Years Used Date Smoking Tobacco: Never Assessed Education Answer Date Recorded Are you interested in more education? Not on vale e 07/15/2022 Are you concerned about learning? Not on file 07/15/2022 No 07/15/2022 No 07/15/2022 Digital Access Answer Date Recorded No 08/15/2022 No 08/15/2022 No 08/15/2022 Reliable internet access at home? Not on file 08/15/2022 Device with a working camera? Not on file Comments Unknown Sex and Gender Information Value Date Recorded Sex Assigned at Not on file Legal Sex Female 2:39 PM EDT Gender Identity Not on file Sexual Orientation Not on file Plan of Treatment Health Maintenance Due Date Last Done Comments Adult Td,Tdap Booster 1976 LIPID PANEL 1976 DEPRESSION SCREENING 1988 SMOKING Hx and SMOKELESS TOBACCO SCREENING 1989 HEPATITIS C SCREENING 1994 HIV ONE-TIME SCREENING (18-6 5 YEARS) 1994 PAP SMEAR 1997 MAMMOGRAM 2016 COLOGUARD 2021 COLONOSCOPY 2021 COLORECTAL CANCER SCREENING 2021 FIT TEST 2021 FOBT 2021 SIGMOIDOSCOPY 2021 VIRTUAL COLONOSCOPY 2021 INFLUENZA VACCINE (#1) 2024 , 01/23/2019, 01/17/2018 COVID-19 VACCINE (2024-2 6 season) 2024 05/01/2020, 04/22/2020 HEPATITIS A VACCINES Aged Out No long er eligible based on patient's age to complete this topic HIB VACCINES Aged Out No longer eligi ble based on patient's age to complete this topic MENINGOCOCCAL VACCINES (ACWY) Aged Out No longer eligible based on patient's age to complete this topic MENINGOCOCCAL VACCINES (B) Aged Out N o longer eligible based on patient's age to complete this topic PNEUMOCOCCAL VACCINES (0-49 years) Aged Out No longer eligible b ased on patient's age to complete this topic Medical Devices Not on file Insurance [facility] [employer] [employer] [facility] [employer] [facility] [employer] [facility] [employer] FAMILY Care Teams Speech And Language Specialist Relationship Specialty Start Date End Date Unknown, Unknown, PCP - General 01/07/17 Additional Source Comments The information contained in this document represents components of the legal health record. It is not the complete legal health record.[facility]
--- OUTSIDE RECORDS SUMMARY | 2025-01-28 16:54 | XMS_ITS | Encounter Summary ---
Author Organization [facility] Address [address] [place] [phone] Phone Care Team Providers Care Taffy Puller Name Role Phone Unknown, Unknown Primary Care Provider Ezequiel chandra Encounter Details Date Type Department Care Team (Late st Contact Info) Description 01/07/2017 Ancillary Orders [facility], [address] [address] Elsy Velazquez MD [address] [facility] [address] [place] [address] Visit for screening mammogram Social History Tobacco Use Types Packs/Day Years Used Date Smoking Tobacco: Never Assessed Comments Unknown Sex and Gender Information Value Date Recorded Sex Assigned at Not on file Legal Sex Female 2:39 PM EDT Gender Identity Not on file Sexual Orientation Not on file documented as of this encounter Plan of Treatment Not on file documented as of this encounter Visit Diagnoses Diagnosis Visit for screening mammogram documented in this encounter Care Teams Taffy Puller Relationship Specialty Start Date End Date Unknown, Unknown, PCP - General 01/07/17 documented as of this encounter Additional Source Comments The information contained in this document represents components of the legal health record. It is not the complete legal health record.[facility]
== END 2025-01-28 15:07 | disposition home or self-care (01) ==
LOC: HO.MAMMO 15:06
PROVIDERS: PCP Nurse Practitioner Family; Visit Provider Obstetrics & Gynecology
DX: Z12.31 Encounter for screening mammogram for malignant neoplasm of breast (principal)
CPT/HCPCS: 77063; 77067

== ENCOUNTER → 2025-01-28 15:15 | Outpatient (BNV) | payer OTHER, SELFPAY | PROVIDERS: PCP Nurse Practitioner Family; Visit Provider Internal Medicine | DX: Z12.31 Encounter for screening mammogram for malignant neoplasm of breast (principal) | CPT/HCPCS: 77063; 77067 ==

== ENCOUNTER 2025-02-21 13:25 | Outpatient (REF) | payer OTHER, SELFPAY ==
--- NOTE | ~2025-02-21 | US_ITS ---
EXAMINATION: US ABDOMEN COMPLETE WITH LIVER ELASTOGRAPHY HISTORY: ELEV LFTS TECHNIQUE: Real-time grayscale ultrasound imaging of the abdomen was performed and images were reviewed. COMPARISON: Correlation is made with a CT of the abdomen with contrast dated 05/28/2024. FINDINGS: Liver: The right lobe of the liver measures 15.3 cm in size. The left lobe of the liver measures 9.2 cm in size. The liver demonstrates normal homogeneous echotexture. No focal mass or intrahepatic biliary ductal dilatation is identified. There is normal hepatopedal flow in the portal vein. Ultrasound elastography of the liver was performed with 10 separate measurements of the liver parenchyma with the patient in the supine position. Measurements were obtained approximately 2 cm below Kenisha's capsule and perpendicular to the capsule. The median shear wave velocity is 1.59 m/s. The interquartile range/median (IQR/median) is 0.14. Gallbladder and biliary tree: The gallbladder is unremarkable, without evidence of calculi, wall thickening, or pericholecystic fluid. There is no sonographic Padgett sign. The common bile duct is normal in caliber measuring 6 mm. Kidneys: The right kidney measures 9.4 cm in length. The left kidney measures 9.3 cm in length. The kidneys are unremarkable, without evidence of masses, hydronephrosis, or calculi. Pancreas: The pancreatic head, neck, and body are unremarkable. The pancreatic tail is obscured by bowel gas. Spleen: The spleen is normal in size and contour, measuring 8.4 cm in length. Abdominal aorta and inferior vena cava: The visualized portions of the abdominal aorta and inferior vena cava are normal in caliber. There is no free fluid in the abdomen. US/US abdomen comp w elastography IMPRESSION: Unremarkable abdominal ultrasound. The median shear wave velocity in the liver is 1.59 m/s, corresponding to a median liver stiffness of 7.82 kPa. The IQR/median value is 0.14. This is indicative of a quality data set. Findings are indicative of a low elastography value which rules out advanced chronic liver disease in asymptomatic patients. REFERENCE: Society of Radiologists in Ultrasound Liver Stiffness Thresholds (2020): LIVER STIFFNESS THRESHOLDS: *Shear wave velocity less than 1.3 m/s (Liver Stiffness equal or less than 5 kPa): High probability of being normal. *Shear wave velocity less than 1.7 m/s (Liver Stiffness less than 9 kPa): In the absence of other known clinical signs, rules out compensated advanced chronic liver disease. *Shear wave velocity between 1.7-2.1 m/s (Liver Stiffness 9-13 kPa): Suggestive of compensated advanced chronic liver disease but need further test for confirmation. *Shear wave velocity between 2.1-2.4 m/s (Liver Stiffness 13-17 kPa): Rules in compensated advanced chronic liver disease. *Shear wave velocity greater than 2.4 m/s (Liver Stiffness over 17 kPa): Suggestive of clinically significant portal hypertension. QUALITY OF DATA SET: *IQR/Median value equal or less than 0.15 implies a quality data set. *IQR/Median value over 0.15 implies a poor quality data set. SIGNIFICANT CHANGE FROM PRIOR EXAM: Significant change if liver stiffness measurement is 10% or greater from prior exam. OTHER CONSIDERATIONS: The stage of liver fibrosis may be overestimated in the setting of acute hepatitis, liver inflammation, elevated liver function tests, hepatic vascular congestion, obstructive cholestasis, non-fasting state, and infiltrative diseases such as amyloidosis and lymphoma. In some patients with NAFLD, the liver stiffness thresholds for compensated advanced chronic liver disease may be lower. In causes other than viral hepatitis and NAFLD, liver stiffness thresholds are not well established. Electronically signed by: Harmeet Butt MD 02/21/2025 03:01 PM ANDIE
--- OUTSIDE RECORDS SUMMARY | 2025-02-21 17:32 | XMS_ITS | Encounter Summary ---
Author Organization [facility] Address [address] [place] [phone] Phone Care Team Providers Care Double Cutter Name Role Phone Unknown, Unknown Primary Care Provider Ezequiel chandra Encounter Details Date Type Department Care Team (Late st Contact Info) Description 01/07/2017 Ancillary Orders [facility], [address] [place] [address] [address] Elsy Velazquez MD [address] [facility] [address] [place] [address] Visit for screening mammogram Social History Tobacco [...] mammogram documented in this encounter Care Teams Double Cutter Relationship Specialty Start Date End Date Unknown, Unknown, PCP - General 01/07/17 documented as of this encounter Additional Source Comments The information contained in this document represents components of the legal health record. It is not the complete legal health record.[facility]
--- OUTSIDE RECORDS SUMMARY | 2025-02-21 17:32 | XMS_ITS | Clinical Summary ---
Author Organization [facility] Address [address] [address] Phone Care Team Providers Care Fitter Machinist Name Role Phone Unknown, Unknown Primary Care [...] topic Medical Devices Not on file Insurance [employer] [facility] [facility] [employer] [employer] FAM[employer] Care Teams Fitter Machinist Relationship Specialty Start Date End Date Unknown, Unknown, PCP - General 01/07/17 Additional Source Comments The information contained in this document represents components of the legal health record. It is not the complete legal health record.[facility]
== END 2025-02-21 13:26 | disposition home or self-care (01) ==
LOC: HO.US 13:25
PROVIDERS: PCP Nurse Practitioner Family; Visit Provider Nurse Practitioner Family
DX: R79.89 Other specified abnormal findings of blood chemistry (principal)
CPT/HCPCS: 76700; 76981

== ENCOUNTER → 2025-02-21 13:49 | Outpatient (BNV) | payer OTHER, SELFPAY | PROVIDERS: PCP Nurse Practitioner Family; Visit Provider Radiology Diagnostic Radiology | DX: R94.5 Abnormal results of liver function studies (principal) | CPT/HCPCS: 76700 ==